=== PATIENT | male | born 1960 | race African-American/Black ===

== ENCOUNTER 2025-03-23 00:12 | Emergency (ER) | payer OTHER ==
[~2025-03-23] VITALS: Ht 185.4 cm; Wt 121.0 kg
[2025-03-23 00:27] VITALS: O2SAT 96
[2025-03-23 02:14] VITALS: BP 144/100; PULSE 77; RESP 16; TEMP 36.7; O2SAT 98
[2025-03-23] MEDS: KETOROLAC 30MG/ML VIAL IM ONE (04:18)
[2025-03-23] MEDS: CYCLOBENZAPRINE 10MG TABLET PO ONE (04:18)
[2025-03-23] MEDS: LIDOCAINE 5% PATCH TOP STA (04:19)
== END 2025-03-23 05:25 | disposition left against medical advice (07) ==
LOC: ER 00:12
DX: S63.075A Dislocation of distal end of left ulna, initial encounter (principal); M47.816 Spondylosis without myelopathy or radiculopathy, lumbar region; M25.512 Pain in left shoulder; M25.511 Pain in right shoulder; M54.50 Low back pain, unspecified; M54.2 Cervicalgia; I10 Essential (primary) hypertension; V49.9XXA Car occupant (driver) (passenger) injured in unspecified traffic accident, initial encounter; Y93.89 Activity, other specified; Y92.410 Unspecified street and highway as the place of occurrence of the external cause; Y99.8 Other external cause status
CPT/HCPCS: 99284; 72100; 73030; 73100; 96372; J1885